=== PATIENT | female | born 1985 | race Caucasian/White ===

== ENCOUNTER 2019-10-11 13:29 | Emergency (ER) | payer OTHER ==
[~2019-10-11] VITALS: Ht 165.1 cm; Wt 102.2 kg
[2019-10-11] MEDS ORDERED: IV NORMAL SALINE 1,000ML 1,000 ML IV ONE (14:00)
[2019-10-11 14:19] LABS: AMPHETAMINE/METHAMPHETAMINE NEG (NEG); BARBITURATES NEG (NEG); BENZODIAZEPINES NEG (NEG); CANNABINOIDS POS (NEG); COCAINE NEG (NEG); METHADONE NEG (NEG); OPIATES NEG (NEG); PHENCYCLIDINE NEG (NEG)
[2019-10-11 14:23] LABS: BASO % 0 % (0-3); EOS # 0.1 x10^3/uL (0.0-0.7); EOS % 1 % (0-3); HEMATOCRIT 40.8 % (36.0-47.0); LYMPH # 2.2 x10^3/uL (1.0-4.8); LYMPH % 31 % (24-48); MEAN CORPUSCULAR HEMOGLOBIN 31 pg (25-35); MEAN CORPUSCULAR HGB CONC 34 g/dL (31-37); MEAN CORPUSCULAR VOLUME 91 fL (79-100); MONO # 0.6 x10^3/uL (0.0-1.1); MONO % 9 % (0-9); NEUT # 4.1 x10^3uL (1.8-7.7); NEUT % 58 % (31-73); PLATELET COUNT 254 x10^3/uL (140-400); RED CELL DISTRIBUTION WIDTH 12.3 % (11.5-14.5); WHITE BLOOD COUNT 7.1 x10^3/uL (4.0-11.0)
--- NOTE | 2019-10-11 14:23 | EKG ---
[address] [address] Test Date: 2019-10-11 Test Time: 14:18:31 Pat Name: CATRINA SHEETS Department: Room: Gender: F Security Agent: : [id number] Requested By: LADARIUS VELASQUEZ Order Number: [id number] Reading MD: Measurements Intervals [place] Rate: 66 P: IN: QRS: -5 QRSD: 100 T: -11 QT: 386 QTc: 406 Interpretive Statements IRREGULAR RHYTHM, NO P-WAVE FOUND LEFTWARD AXIS T ABNORMALITY IN ANTERIOR LEADS INFEROLATERAL LEADS ABNORMAL ECG RI6.02 No previous ECG available for comparison
[2019-10-11 14:29] LABS: BACTERIA,URINE 0 /HPF (0-FEW); BILIRUBIN,URINE NEG (NEG); CLARITY,URINE CLEAR; COLOR,URINE YELLOW; GLUCOSE,URINE NEG (NEG); NITRITE,URINE NEG (NEG); SQUAMOUS EPITHELIAL CELL,UR MANY /LPF; UROBILINOGEN,URINE 0.2 mg/dL (0.2 mg/dL)
--- NOTE | 2019-10-11 14:34 | PHYS DOC ---
Past History Past Medical History: Anxiety Past Surgical History: Tonsillectomy, Tubal ligation Alcohol Use: Heavy General Adult EDM: Chief Complaint: ANXIETY/PANIC ATTACK HPI: HPI: Patient is a [age] year old [sex] who presents with [] Review of Systems: Review of Systems: Constitutional: Denies fever or chills Eyes: Denies change in visual acuity HENT: Denies nasal congestion or sore throat Respiratory: Denies cough or shortness of breath Cardiovascular: Denies chest pain or edema GI: Denies abdominal pain, nausea, vomiting, bloody stools or diarrhea : Denies dysuria Musculoskeletal: Denies back pain or joint pain Integument: Denies rash Neurologic: Denies headache, focal weakness or sensory changes Endocrine: Denies polyuria or polydipsia Lymphatic: Denies swollen glands Psychiatric: Denies depression or anxiety Heart Score: Risk Factors: Risk Factors: DM, Current or recent (<one month) smoker, HTN, HLP, family history of CAD, obesity. Risk Scores: Score 0 - 3: 2.5% MACE over next 6 weeks - Discharge Home Score 4 - 6: 20.3% MACE over next 6 weeks - Admit for Clinical Observation Score 7 - 10: 72.7% MACE over next 6 weeks - Early Invasive Strategies Current Medications: Current Meds: Current Medications Medications (Trade) Dose Ordered Sig/Emery Start Time Stop Time Status Last Admin Dose Admin Lorazepam (Ativan Inj) 0.5 mg 1X ONCE 10/11/19 14:00 10/11/19 14:19 DC Sodium Chloride 1,000 ml @ 1,000 mls/hr 1X ONCE 10/11/19 14:00 10/11/19 14:59 Allergies: Allergies: Allergies Coded Allergies Type Severity Reaction Last Updated Verified No Known Drug Allergies 10/11/19 No Physical Exam: PE: Constitutional: Well developed, well nourished, no acute distress, non-toxic appearance. [] HENT: Normocephalic, atraumatic, bilateral external ears normal, oropharynx moist, no oral exudates, nose normal. [] Eyes: PERRLA, EOMI, conjunctiva normal, no discharge. [] Neck: Normal range of motion, no tenderness, supple, no stridor. [] Cardiovascular:Heart rate regular rhythm, no murmur [] Lungs & Thorax: Bilateral breath sounds clear to auscultation [] Abdomen: Bowel sounds normal, soft, no tenderness, no masses, no pulsatile masses. [] Skin: Warm, dry, no erythema, no rash. [] Back: No tenderness, no CVA tenderness. [] Extremities: No tenderness, no cyanosis, no clubbing, ROM intact, no edema. [] Neurologic: Alert and oriented X 3, normal motor function, normal sensory function, no focal deficits noted. [] Psychologic: Affect normal, judgement normal, mood normal. [] Current Patient Data: Labs: Laboratory Tests Test 10/11/19 13:52 10/11/19 14:10 Urine Opiates Screen Neg (NEG) Urine Methadone Screen Neg (NEG) Urine Barbiturates Neg (NEG) Urine Phencyclidine Screen Neg (NEG) Urine Amphetamine/Methamphetamine Neg (NEG) Urine Benzodiazepines Screen Neg (NEG) Urine Cocaine Screen Neg (NEG) Urine Cannabinoids Screen Pos (NEG) Urine Ethyl Alcohol Neg (NEG) White Blood Count 7.1 x10^3/uL (4.0-11.0) Red Blood Count 4.50 x10^6/uL (3.50-5.40) Hemoglobin 14.0 g/dL (12.0-15.5) Hematocrit 40.8 % (36.0-47.0) Mean Corpuscular Volume 91 fL (79-100) Mean Corpuscular Hemoglobin 31 pg (25-35) Mean Corpuscular Hemoglobin Concent 34 g/dL (31-37) Red Cell Distribution Width 12.3 % (11.5-14.5) Platelet Count 254 x10^3/uL (140-400) Neutrophils (%) (Auto) 58 % (31-73) Lymphocytes (%) (Auto) 31 % (24-48) Monocytes (%) (Auto) 9 % (0-9) Eosinophils (%) (Auto) 1 % (0-3) Basophils (%) (Auto) 0 % (0-3) Neutrophils # (Auto) 4.1 x10^3uL (1.8-7.7) Lymphocytes # (Auto) 2.2 x10^3/uL (1.0-4.8) Monocytes # (Auto) 0.6 x10^3/uL (0.0-1.1) Eosinophils # (Auto) 0.1 x10^3/uL (0.0-0.7) Basophils # (Auto) 0.0 x10^3/uL (0.0-0.2) Vital Signs: Vital Signs Date Time Temp Pulse Resp B/P (MAP) Pulse Ox O2 Delivery O2 Flow Rate FiO2 10/11/19 13:29 85 42 145/115 (125) 98 Room Air EKG: EKG: @NSR at 66bpm, NO ST elevation, QRS 100ms, QT/QTc 386/406ms, baseline artifact noted, nonspecific t wave inversion III, aVF, and V3-V6 Radiology/Procedures: Radiology/Procedures: [] Course & Med Decision Making: Course & Med Decision Making Pertinent Labs and Imaging studies reviewed. (See chart for details) [] Dragon Disclaimer: Dragon Disclaimer: This electronic medical record was generated, in whole or in part, using a voice recognition dictation system. Departure Departure: Impression: Primary Impression: Anxiety Disposition: 01 HOME/RESIDENCE PRIOR TO ADM Condition: STABLE Referrals: MARLENE TOBIAS (PCP) Patient Instructions: Anxiety and Panic Attacks, [id number] Justification of Admission: Justification of Admission: Justification of Admission Dx: N/A NIHSS - ED NIH Stroke Scale: NIH Stroke Scale Response (Comments) Value Level of Consciousness: 0 Alert/Responsive 0 LOC Questions: 0 Answers both correctly 0 LOC Commands: 0 Performs both tasks 0 Best Gaze: 0 Normal 0 Visual: 0 No visual loss 0 Facial Palsy: 0 Normal, symmetrical 0 Motor - Left Arm 0 No drift 0 Motor - Right Arm 0 No drift 0 Motor - Left Leg 0 No drift 0 Motor: Right Leg 0 No drift 0 Limb Ataxia: 0 Absent 0 Sensory: 0 No loss 0 Best Language: 0 Normal 0 Dysathria: 0 Normal 0 Extinction and Inattention: 0 Normal 0 Total 0 VELASQUEZLADARIUS DO Oct 11, 2019 14:34
[2019-10-11 14:36] LABS: CALCIUM 8.5 mg/dL (8.5-10.1); CREATININE 0.8 mg/dL (0.6-1.0); GFR 82.6; POTASSIUM 3.7 mmol/L (3.5-5.1)
[2019-10-11 14:40] LABS: ALBUMIN 3.9 g/dL (3.4-5.0); ALBUMIN/GLOBULIN RATIO 1.1 (1.0-1.7); MAGNESIUM 1.7 mg/dL (1.8-2.4); TOTAL BILIRUBIN 0.9 mg/dL (0.2-1.0); TOTAL PROTEIN 7.4 g/dL (6.4-8.2)
[2019-10-11 15:23] VITALS: BP 122/70
== END 2019-10-11 15:25 | disposition home or self-care (01) ==
LOC: ER 13:29
DX: F41.9 Anxiety disorder, unspecified (principal); F10.20 Alcohol dependence, uncomplicated; Y90.0 Blood alcohol level of less than 20 mg/100 ml
CPT/HCPCS: 36415; 80053; 80307; 81001; 83735; 85025; 93005; 96374; 99284; G0480; J2060; J7030

== ENCOUNTER 2019-11-28 17:12 | Emergency (ER) | payer OTHER ==
[~2019-11-28] VITALS: Ht 165.1 cm; Wt 98.2 kg
[2019-11-28 17:54] LABS: BASO % 0 % (0-3); EOS % 0 % (0-3); HEMOGLOBIN 13.7 g/dL (12.0-15.5); LYMPH # 1.4 x10^3/uL (1.0-4.8); LYMPH % 11 % (24-48); MEAN CORPUSCULAR HEMOGLOBIN 31 pg (25-35); MEAN CORPUSCULAR HGB CONC 34 g/dL (31-37); MEAN CORPUSCULAR VOLUME 89 fL (79-100); MONO # 0.8 x10^3/uL (0.0-1.1); MONO % 6 % (0-9); NEUT # 10.1 x10^3uL (1.8-7.7); NEUT % 82 % (31-73); PLATELET COUNT 322 x10^3/uL (140-400); RED BLOOD COUNT 4.48 x10^6/uL (3.50-5.40); RED CELL DISTRIBUTION WIDTH 11.8 % (11.5-14.5); WHITE BLOOD COUNT 12.4 x10^3/uL (4.0-11.0)
--- NOTE | 2019-11-28 18:02 | PHYS DOC ---
Past History Past Medical History: Anxiety, Other Additional Past Medical Histor: sleep (ARIADNE REINOSO DO) Past Surgical History: Tonsillectomy, Tubal ligation Additional Past Surgical Histo: Tubal ligation reversal (ARIADNE REINOSO DO) Smoking: Non-smoker Alcohol Use: Occasionally Drug Use: Marijuana (ARIADNE REINOSO DO) General Adult EDM: Chief Complaint: FLANK PAIN HPI: HPI: 34 yo F PMH anxiety, presents to the ED with complaints of sudden onset left flank pain that started earlier today, no relief with [place] taken at 1 PM, associated nausea and chills. Patient states she feels as if she needs to have a bowel movement, no relief with an antibiotic. States last night she had an upset stomach. Reports tubal ligation reversal 3 weeks ago, LMP was November 22. States 5 weeks ago she was treated with Bactrim for 10 days for a UTI. On no fertility medications. Tubal ligation was because of "hormone problems, it didn't work." No other abdominal surgeries. No history of alcohol or drug use. Last bowel movement was earlier today, normal. No h/o kidney stones. Took a warm bath for two hours, no relief. ROS: Denies associated fever, headache, neck stiffness, cough, sore throat, vomiting, diarrhea, constipation, melena, hematochezia, dysuria, hematuria, hemoptysis, leg swelling, rash, chest pain, dyspnea, hemoptysis, abdominal pain, suprapubic pressure, vaginal bleeding or abnormal vaginal discharge/itching/odor. (ARIADNE REINOSO DO) Review of Systems: Review of Systems: Constitutional: Denies fever Eyes: Denies change in visual acuity HENT: Denies nasal congestion or sore throat Respiratory: Denies cough or shortness of breath Cardiovascular: Denies chest pain or edema GI: Denies abdominal pain, vomiting, bloody stools or diarrhea : Denies dysuria Musculoskeletal: Denies joint pain Integument: Denies rash Neurologic: Denies headache, focal weakness or sensory changes Endocrine: Denies polyuria or polydipsia Lymphatic: Denies swollen glands Psychiatric: Denies depression or anxiety (ARIADNE REINOSO DO) Heart Score: Risk Factors: Risk Factors: DM, Current or recent (<one month) smoker, HTN, HLP, family h istory of CAD, obesity. Risk Scores: Score 0 - 3: 2.5% MACE over next 6 weeks - Discharge Home Score 4 - 6: 20.3% MACE over next 6 weeks - Admit for Clinical Observation Score 7 - 10: 72.7% MACE over next 6 weeks - Early Invasive Strategies [facility] Allergies: Allergies: Allergies Coded Allergies Type Severity Reaction Last Updated Verified No Known Drug Allergies 10/11/19 No ([facility] Physical Exam: PE: Constitutional: Well developed, well nourished, in pain when moving, non-toxic appearance, afebrile, hypertensive HENT: Normocephalic, atraumatic, Eyes: EOMI, conjunctiva normal, no discharge. [] Neck: Normal range of motion, no tenderness, supple, no stridor. [] Cardiovascular:Heart rate regular rhythm, no murmur [] Lungs & Thorax: Bilateral breath sounds clear to auscultation [] Abdomen: Bowel sounds normal, soft, no tenderness, no masses, no pulsatile masses, pelvic horizontal tubal ligation scar c/d/i w/no dehiscence Skin: Warm, dry, no erythema, no rash. [] Back: No tenderness, + CVA tenderness. [] Extremities: No tenderness, no cyanosis, no clubbing, ROM intact, no edema. [] Neurologic: Alert and oriented X 3, normal motor function, normal sensory function, no focal deficits noted. [] Psychologic: Affect normal, judgement normal, mood normal. [] ([facility] Current Patient Data: Vital Signs: Vital Signs Date Time Temp Pulse Resp B/P (MAP) Pulse Ox O2 Delivery O2 Flow Rate FiO2 11/28/19 17:20 98.2 71 14 146/63 (90) 98 Room Air ([facility] EKG: EKG: [] ([facility] Radiology/Procedures: Radiology/Procedures: [] ([facility]) Impressions: Study: CT abdomen/pelvis without intravenous contrast Indication: Severe left flank pain. Comparison: 06/24/2012 Technique: Helical CT imaging performed of the abdomen and pelvis without the use of intravenous contrast. Sagittal and coronal reformats were obtained. One or more of the following individualized dose reduction techniques were utilized for this examination: 1. Automated exposure control 2. Adjustment of the mA and/or kV according to patient size 3. Use of iterative reconstruction technique. Findings: Inherently limited evaluation without intravenous contrast. Chest: Possible trace pleural effusions bilaterally such as on the right on image 25 series 2. Liver: No discrete parenchymal abnormality. Gallbladder/Biliary Tree: No findings to suggest acute cholecystitis. Pancreas: Unremarkable. Spleen: Mildly prominent in size at 13 cm craniocaudal. Adrenal Glands: Unremarkable. Kidneys/Ureters/Bladder: Hydroureteronephrosis on the left in the setting of a and obstructing 4.5 mm stone located at the proximal ureter 5 cm distal to the ureteropelvic junction. Edematous prominence of the left kidney relative to the right and left perinephric inflammation. No stone or collecting system dilatation on the right. Mostly collapsed urinary bladder. Reproductive Organs: Right ovarian cystic focus measuring up to 3.3 cm. Unremarkable left adnexa. No concerning abnormality of the uterus. Colon: Small volume incompletely formed stool suggesting a diarrheal state. Appendix: Normal. Small Bowel: Nonobstructed. Stomach: Unremarkable. Vasculature: Nonaneurysmal aorta. Lymph Nodes: Within normal limits. Peritoneum and Body Wall: Trace free fluid within the deep pelvis, image 112 series 2. Mild fatty reticulation and thin fluid attenuation within the subcutaneous tissues of the ventral midline lower pelvis, image 136 series 2. Diastatic ventral abdominal midline at the umbilicus. Bones: No acute or aggressive osseous process. Miscellaneous: None. Impression: 1. Hydroureteronephrosis and findings of obstructive nephropathy on the left in the setting of a 4.5 mm stone obstructing the proximal left ureter around 5 cm distal to the ureteropelvic junction. 2. Subcutaneous fatty stranding and a thin area of fluid attenuation within the subcutaneous tissues of the ventral lower pelvis. This may be a chronic finding but recommend correlation for symptoms/physical exam findings of active panniculitis. 3. Within normal limits reproductive organs given patient age to include a 3.3 cm right ovarian cyst. 4. Mild enlargement of the spleen. Electronically signed by: JORDEN SIU MD (11/28/2019 6:22 PM) [id number] DICTATED AND SIGNED BY: JORDEN SIU MD DATE: 11/28/19 182 CC: AMINATA KOROMA; ARIADNE REINOSO DO ~ (LINDSEY SHEPARD DO) Course & Med Decision Making: Course & Med Decision Making Pertinent Labs and Imaging studies reviewed. (See chart for details) Concern for acute left flank pain with chills and nausea, differential includes pyelonephritis versus nephrolithiasis versus constipation. Urine negative. Mild leukocytosis of 12.4. Patient is afebrile. Urinalysis, chemistry panel and CT imaging are pending. Due to shift change patient was signed out to Dr. Shepard. (ARIADNE REINOSO DO) Course & Med Decision Making The patient CT scan shows obstructive stone of 4.5 mm. Her creatinine is 1.1. Her urinalysis does not show infection. This could still pass. I will discharge the patient with [place] 7.5/325 for home. I have advised that she develop a game plan of the urologist that she could go see if this does not pass in the next couple of days. She develops a fever she will come back to the hospital for admission. She is stable for discharge at this time. (LINDSEY SHEPARD DO) Dragon Disclaimer: Dragon Disclaimer: This electronic medical record was generated, in whole or in part, using a voice recognition dictation system. (ARIADNE REINOSO DO) Departure Departure: Impression: Primary Impression: Ureterolithiasis Disposition: HOME/RESIDENCE PRIOR TO ADM Condition: STABLE Referrals: AMINATA KOROMA (PCP) Patient Instructions: Kidney Stones, Nigr-wa-Wiwc Scripts Ondansetron (ONDANSETRON ODT) 4 Mg Tab.rapdis 1 TAB PO PRN Q6-8HRS PRN for VOMITING, #16 TAB Prov: LINDSEY SHEPARD DO 11/28/19 Hydrocodone Bit/Acetaminophen (NORCO 7.5-325 TABLET) 1 Each Tablet 1 TAB PO PRN Q6HRS PRN for PAIN, #20 TAB 0 Refills Prov: LINDSEY SHEPARD DO 11/28/19 Justification of Admission: Justification of Admission: Justification of Admission Dx: N/A (ARIADNE REINOSO DO) Justification of Admission Dx: N/A (LINDSEY SHEPARD DO) ARIADNE REINOSO DO Nov 28, 2019 18:02 LINDSEY SHEPARD DO Nov 28, 2019 19:01
[2019-11-28 18:03] LABS: BILIRUBIN,URINE NEG (NEG); CLARITY,URINE CLEAR; COLOR,URINE YELLOW; GLUCOSE,URINE NEG (NEG); NITRITE,URINE NEG (NEG); UROBILINOGEN,URINE 0.2 mg/dL (0.2 mg/dL)
[2019-11-28 18:04] LABS: BACTERIA,URINE 0 /HPF (0-FEW); RBC,URINE 20-40 /HPF (0-2); SQUAMOUS EPITHELIAL CELL,UR FEW /LPF; WBC,URINE OCC /HPF (0-4)
[2019-11-28 18:04] LABS: CALCIUM 9.1 mg/dL (8.5-10.1); CREATININE 1.1 mg/dL (0.6-1.0); GFR 57.2; POTASSIUM 3.9 mmol/L (3.5-5.1)
[2019-11-28 18:10] LABS: ALBUMIN/GLOBULIN RATIO 1.1 (1.0-1.7); TOTAL PROTEIN 7.6 g/dL (6.4-8.2)
[2019-11-28] MEDS ORDERED: MORPHINE SULFATE 2 MG/ML DISP.SYRIN. IV ONE (18:15)
[2019-11-28] MEDS ORDERED: KETOROLAC 15 MG/ML VIAL. IVP ONE (18:15)
--- NOTE | 2019-11-28 18:24 | RAD ---
Study: CT abdomen/pelvis without intravenous contrast Indication: Severe left flank pain. Comparison: 06/24/2012 Technique: Helical CT imaging performed of the abdomen and pelvis without the use of intravenous contrast. Sagittal and coronal reformats were obtained. One or more of the following individualized dose reduction techniques were utilized for this examination: 1. Automated exposure control 2. Adjustment of the mA and/or kV according to patient size 3. Use of iterative reconstruction technique. Findings: Inherently limited evaluation without intravenous contrast. Chest: Possible trace pleural effusions bilaterally such as on the right on image 25 series 2. Liver: No discrete parenchymal abnormality. Gallbladder/Biliary Tree: No findings to suggest acute cholecystitis. Pancreas: Unremarkable. Spleen: Mildly prominent in size at 13 cm craniocaudal. Adrenal Glands: Unremarkable. Kidneys/Ureters/Bladder: Hydroureteronephrosis on the left in the setting of a and obstructing 4.5 mm stone located at the proximal ureter 5 cm distal to the ureteropelvic junction. Edematous prominence of the left kidney relative to the right and left perinephric inflammation. No stone or collecting system dilatation on the right. Mostly collapsed urinary bladder. Reproductive Organs: Right ovarian cystic focus measuring up to 3.3 cm. Unremarkable left adnexa. No concerning abnormality of the uterus. Colon: Small volume incompletely formed stool suggesting a diarrheal state. Appendix: Normal. Small Bowel: Nonobstructed. Stomach: Unremarkable. Vasculature: Nonaneurysmal aorta. Lymph Nodes: Within normal limits. Peritoneum and Body Wall: Trace free fluid within the deep pelvis, image 112 series 2. Mild fatty reticulation and thin fluid attenuation within the subcutaneous tissues of the ventral midline lower pelvis, image 136 series 2. Diastatic ventral abdominal midline at the umbilicus. Bones: No acute or aggressive osseous process. Miscellaneous: None. Impression: 1. Hydroureteronephrosis and findings of obstructive nephropathy on the left in the setting of a 4.5 mm stone obstructing the proximal left ureter around 5 cm distal to the ureteropelvic junction. 2. Subcutaneous fatty stranding and a thin area of fluid attenuation within the subcutaneous tissues of the ventral lower pelvis. This may be a chronic finding but recommend correlation for symptoms/physical exam findings of active panniculitis. 3. Within normal limits reproductive organs given patient age to include a 3.3 cm right ovarian cyst. 4. Mild enlargement of the spleen. Electronically signed by: JORDEN SIU MD (11/28/2019 6:22 PM) [id number]
[2019-11-28 19:12] VITALS: BP 118/58
[2019-11-28] MEDS ORDERED: HYDR-3166 PO (19:21)
[2019-11-28] MEDS ORDERED: ONDA4TAB12 PO (19:24)
== END 2019-11-28 19:30 | disposition home or self-care (01) ==
LOC: ER 17:12
DX: N13.2 Hydronephrosis with renal and ureteral calculous obstruction (principal); N83.201 Unspecified ovarian cyst, right side; F41.9 Anxiety disorder, unspecified; Z98.51 Tubal ligation status
CPT/HCPCS: 36415; 74176; 80053; 81001; 81025; 85025; 96374; 96375; 99284; J1885; J2270